=== PATIENT | male | born 1960 ===

== ENCOUNTER 2017-12-03 08:56 | Emergency (ER) | payer OTHER ==
[~2017-12-03] VITALS: Ht 172.7 cm; Wt 62.1 kg
== END 2017-12-03 14:19 | disposition home or self-care (01) ==
LOC: ER 08:56 → CPU-OBS 09:42 → ER 14:19
DX: N39.0 Urinary tract infection, site not specified (principal); E86.0 Dehydration

== ENCOUNTER → 2017-12-30 | Emergency (ER) | payer OTHER ==
[~2017-12-30] VITALS: Ht 172.7 cm; Wt 71.7 kg
[~2017-12-30] MED LIST: SEPTRA DS
== END | disposition left against medical advice (07) ==
LOC: ER 18:59
DX: Z53.20 Procedure and treatment not carried out because of patient's decision for unspecified reasons (principal)

== ENCOUNTER 2018-01-05 06:54 | Emergency (ER) | payer OTHER ==
[~2018-01-05] VITALS: Ht 172.7 cm; Wt 59.9 kg
[2018-01-05] MEDS ORDERED: SEPTRA DS (07:12)
== END 2018-01-05 16:16 | disposition home or self-care (01) ==
LOC: ER 06:54
DX: N39.0 Urinary tract infection, site not specified (principal); K29.70 Gastritis, unspecified, without bleeding; E86.0 Dehydration